=== PATIENT | female | born 1985 ===

== ENCOUNTER 2020-10-13 20:10 | Emergency (ER) | payer SELFPAY ==
--- NOTE | 2020-10-13 21:39 | Event Note ---
ED Screening Note Date of service: 10/13/20 Time: 21:39 ED Screening Note: Pt complains of chest pain, palpitations, and anxiety This initial assessment/diagnostic orders/clinical plan/treatment(s) is/are subject to change based on patients health status, clinical progression and re-assessment by fellow clinical providers in the ED. Further treatment and workup at subsequent clinical providers discretion. Patient/guardian urged not to elope from the ED as their condition may be serious if not clinically assessed and managed. Initial orders include: labs ekg CXR
[2020-10-13 21:51] VITALS: BP 140/86
[2020-10-13 22:02] LABS: Basophils % (Auto) 0.5 % (0.0-1.8); Eosinophils % (Auto) 0.1 % (0.0-4.3); Hematocrit 43.6 % (30.3-42.9); Hemoglobin 15.1 gm/dl (10.1-14.3); Lymphocytes # (Auto) 1.6 K/mm3 (1.2-5.4); Lymphocytes % (Auto) 18.5 % (13.4-35.0); Mean Corpuscular HGB Conc 35 % (30-34); Mean Corpuscular Volume 94 fl (79-97); Monocytes # (Auto) 0.4 K/mm3 (0.0-0.8); Monocytes % (Auto) 4.4 % (0.0-7.3); Platelet Count 222 K/mm3 (140-440); Red Blood Count 4.64 M/mm3 (3.65-5.03)
[2020-10-13 22:26] LABS: Alanine Aminotransferase 13 units/L (7-56); Albumin 4.7 g/dL (3.9-5); Blood Urea Nitrogen 6 mg/dL (7-17); Calcium 9.7 mg/dL (8.4-10.2); Hemolysis Index 8
[2020-10-13 22:35] LABS: BUN/Creatinine Ratio 12
--- NOTE | 2020-10-13 22:58 | XRay Report ---
CHEST 1 VIEW 2241 INDICATION / CLINICAL INFORMATION: -Chest Pain COMPARISON: None available. FINDINGS: SUPPORT DEVICES: None HEART / MEDIASTINUM: No significant abnormality. LUNGS / PLEURA: No significant pulmonary or pleural abnormality. No pneumothorax. ADDITIONAL FINDINGS: No significant additional findings. IMPRESSION: No significant acute abnormality Signer Name: Fahad Paez MD Signed: 10/13/2020 10:54 PM Workstation Name: [id number]
[2020-10-14] MEDS ORDERED: LORazepam 1 MG TAB PO ONE (02:05)
--- NOTE | 2020-10-14 02:09 | Emergency Department Report ---
ED Anxiety HPI - General Chief Complaint: Chest Pain Stated Complaint: CHEST PAIN Time Seen by Provider: 10/13/20 21:38 Source: patient, EMS, interpreter for the deaf Mode of arrival: Stretcher Limitations: Language Barrier (Reception Clerk used) - History of Present Illness Initial Comments: 35-year-old female, history of anxiety and depression presents to ED with anxi ety attack. Patient states symptoms began this morning and has continued throughout the day. She reports intermittent palpitations. Patient states she takes paroxetine daily. Patient denies any significant event that may have led to increase in her anxiety today. Patient denies any suicidal ideation. Patient states she has good family support and children to live for. Patient is not currently seeing a psychiatrist, but she has in the past. Patient was prescribed her paroxetine by her regular physician. Patient is requesting something for anxiety right now. MD Complaint: anxiety -: This morning Symptoms: palpitations, sense of impending doom Place: home Severity: severe Quality: constant Provoking factors: none known Improves With: nothing Worsens With: nothing Associated symptoms: palpitations - Related Data Allergies/Adverse Reactions: Allergies Allergy/AdvReac Type Severity Reaction Status Date / Time No Known Allergies Allergy Unverified 10/13/20 21:43 ED Review of Systems ROS: Stated complaint: CHEST PAIN Other details as noted in HPI Comment: All other systems reviewed and negative Cardiovascular: palpitations Psychiatric: anxiety. denies: homicidal thoughts, suicidal thoughts ED Past Medical Hx - Past Medical History Previous Medical History?: Yes Hx Psychiatric Treatment: Yes (Anxiety) - Surgical History Past Surgical History?: No - Social History Smoking Status: Never Smoker Substance Use Type: None ED Physical Exam - General Limitations: No Limitations General appearance: alert, in no apparent distress - Head Head exam: Present: atraumatic, normocephalic - Eye Eye exam: Present: normal appearance, EOMI - ENT ENT exam: Present: mucous membranes moist - Neck Neck exam: Present: normal inspection - Respiratory Respiratory exam: Present: normal lung sounds bilaterally. Absent: respiratory distress - Cardiovascular Cardiovascular Exam: Present: normal rhythm, tachycardia - GI/Abdominal GI/Abdominal exam: Present: soft. Absent: distended, tenderness - Extremities Exam Extremities exam: Present: normal inspection - Neurological Exam Neurological exam: Present: alert, oriented X3 - Psychiatric Psychiatric exam: Present: anxious - Skin Skin exam: Present: warm, dry, intact, normal color ED Course Vital Signs 10/13/20 10/14/20 21:40 02:35 Temperature 98.3 F Pulse Rate 115 H 98 H Respiratory 18 17 Rate Blood Pressure 140/86 O2 Sat by Pulse 97 99 Oximetry ED Medical Decision Making - Lab Data Result diagrams: 10/13/20 21:54 10/13/20 21:54 - Radiology Data Radiology results: report reviewed, image reviewed - Medical Decision Making 35-year-old female with history of anxiety presents to ED with anxiety attack. Patient reports heart palpitations. Patient denies any SI. Ativan given here in ED. Labs are unremarkable. EKG is normal. Patient advised to follow-up on an outpatient basis. Resources given. Return precautions given. - Differential Diagnosis Anxiety Critical care attestation.: If time is entered above; I have spent that time in minutes in the direct care of this critically ill patient, excluding procedure time. ED Disposition Clinical Impression: Anxiety Disposition: DC-01 TO HOME OR SELFCARE Is pt being admited?: No Condition: Stable Referrals: PRIMARY CARE, [Primary Care Provider] - 3-5 Days [facility] [Outside] - 3-5 Days Time of Disposition: 02:09 Print Language: RUSSIAN
[2020-10-14 02:25] LABS: Amphetamine Screen,Urine PRESUMPTIVE NEGATIVE; Benzodiazepines Screen,Urine PRESUMPTIVE NEGATIVE; Cannabinoid Screen,Urine PRESUMPTIVE NEGATIVE; Cocaine Screen,Urine PRESUMPTIVE NEGATIVE; Methadone Screen,Urine PRESUMPTIVE NEGATIVE; Opiate Screen,Urine PRESUMPTIVE NEGATIVE
[2020-10-14 02:48] LABS: Bacteria,Urine 1+ /HPF (Negative); Bilirubin,Urine NEG (Negative); Blood,Urine NEG (Negative); Color,Urine Amber (Yellow); Mucus,Urine 3+ /HPF; Urobilinogen,Urine < 2.0 mg/dL (<2.0)
[2020-10-14 02:54] LABS: HCG Qualitative,Urine Negative (Negative)
== END 2020-10-14 02:35 | disposition home or self-care (01) ==
LOC: ED 20:10
DX: F41.9 Anxiety disorder, unspecified (principal)
CPT/HCPCS: 36415; 71045; 80053; 80307; 81001; 81025; 83735; 84443; 84484; 85025; 93005